=== PATIENT | female | born 1935 | race Asian ===

== ENCOUNTER 2020-01-31 04:06 | Inpatient (IN) | payer MEDICARE ==
[~2020-01-31] VITALS: Ht 149.9 cm; Wt 56.9 kg
[2020-01-31] MEDS ORDERED: ONDANSETRON HCL 4 MG/2 ML VIAL IV ONE (04:15)
[2020-01-31] MEDS ORDERED: SODIUM CHLORIDE 0.9% 500 ML IV ONE (04:15)
[2020-01-31] MEDS ORDERED: MET50T GT (04:40)
[2020-01-31] MEDS ORDERED: DULO20CA PO (04:40)
[2020-01-31] MEDS ORDERED: PANT1INJ3 IV (04:41)
[2020-01-31] MEDS ORDERED: ATOR20TA50 PO (04:44)
[2020-01-31] MEDS ORDERED: ATOR40TA52 PO (04:45)
[2020-01-31] MEDS ORDERED: ASPI-378 PO (04:46)
[2020-01-31 05:45] LABS: Basophils # (auto) 0 10 ^3/uL (0-0.2); Basophils % (auto) 0.5 % (0.0-2.0); Eosinophils # (auto) 0 10 ^3/uL (0-0.8); Eosinophils % (auto) 0.4 % (0.0-7.0); Hematocrit 37.4 % (36.0-46.0); Hemoglobin 12.5 g/dL (12.2-16.2); Lymphocytes # (auto) 0.9 10 ^3/uL (0.4-5.4); Lymphocytes % (auto) 15.5 % (10.0-50.0); Mean Corpuscular Hemoglobin 31.4 pg (28.0-32.0); Mean Corpuscular Hgb Conc. 33.5 g/dL (32.0-36.0); Mean Corpuscular Volume 93.7 fL (80.0-100.0); Monocytes # (auto) 0.6 10 ^3/uL (0-1.3); Monocytes % (auto) 10.1 % (0.0-12.0); Neutrophils # (auto) 4.2 10 ^3/uL (1.6-8.6); Neutrophils % (auto) 73.5 % (37.0-80.0); Nucleated Red Blood Cells % 0.1 %; Platelet Count (auto) 280 10^3/uL (140-450); Red Blood Cells 3.99 10^6/uL (4.0-5.20); Red Cell Distribution Width 14.1 % (11.8-14.3); White Blood Cell 5.7 10^3/uL (4.4-10.8)
[2020-01-31 05:57] LABS: Partial Thromboplastin Time 24.3 sec (23.0-31.2)
[2020-01-31 06:03] LABS: Albumin 2.8 g/dL (3.4-5.0); Calcium 8.9 mg/dL (8.5-10.1); Chloride 98 mmol/L (98-107); Potassium 3.7 mmol/L (3.5-5.1); Sodium 131 mmol/L (136-145)
[2020-01-31 06:08] LABS: Amylase 101 U/L (25-115); Lipase 142 U/L (73-393)
[2020-01-31 06:14] LABS: Alanine Aminotransferase 33 U/L (13-56); Alkaline Phosphatase 82 U/L (45-117); Anion Gap 8 (5-15); Aspartate Aminotransferase 29 U/L (15-37); BUN/Creatinine Ratio 16.4; Bilirubin, Total 0.8 mg/dL (0.2-1.0); Blood Urea Nitrogen 11 mg/dL (7-18); Carbon Dioxide 25 mmol/L (21-32); GFR African American 108 mL/min; GFR Non-African American 90 mL/min; Glucose 142 mg/dL (74-106); Magnesium 2.4 mg/dL (1.6-2.6)
[2020-01-31] MEDS ORDERED: DexAMETHasone SOD PHOS 10MG/1ML VIAL INJ IV ONE (06:15)
[2020-01-31] MEDS ORDERED: DOXYCYCLINE 100MG/250ML 250 ML IV ONE (06:15)
[2020-01-31] MEDS ORDERED: SODIUM CHLORIDE 0.9% 1,000 ML IV SCH (07:24)
[2020-01-31] MEDS ORDERED: ACETAMINOPHEN 325 MG TAB PO PRN (07:30)
[2020-01-31] MEDS ORDERED: ALUM & MAG HYDROX-SIMETH LIQ(MAALOX) 30 ML PO PRN (07:30)
[2020-01-31] MEDS ORDERED: DOCUSATE SOD 100 MG CAP PO PRN (07:30)
[2020-01-31] MEDS ORDERED: ACETAMINOPHEN 500 MG TAB PO PRN (07:30)
[2020-01-31 08:31] LABS: Urine Bacteria FEW /hpf (None Seen); Urine Blood Negative /uL (Negative); Urine Specific Gravity 1.008 (1.001-1.035); Urine WBC 20 /hpf (0 - 5)
[2020-01-31] MEDS ORDERED: ASCORBIC ACID 1,000 MG TAB PO SCH (10:00)
[2020-01-31] MEDS ORDERED: PANTOPRAZOLE 40 MG/10 ML VIAL INJ IV SCH (10:00)
[2020-01-31] MEDS ORDERED: DOXYCYCLINE 100 MG TAB/CAP PO SCH (10:00)
[2020-01-31] MEDS ORDERED: ZINC SULFATE 220mg CAP or TAB PO SCH (10:00)
[2020-01-31] MEDS: ASPirin-EC 81 mg tab PO SCH (10:04)
[2020-01-31] MEDS: METOPROLOL TARTRATE 50 MG TAB PO SCH ×2 (10:04→22:15)
[2020-01-31] MEDS: ENOXAPARIN SOD 40 MG/0.4 ML SYRINGE SC SCH (10:04)
[2020-01-31] MEDS ORDERED: levoFLOXacin 500MG 100 ML IV ONE (10:45)
[2020-01-31] MEDS: HYDROcodone-ACET 5/325MG TAB PO PRN ×3 (11:49→22:15)
--- NOTE | 2020-01-31 12:37 | NUR ---
MS admit from [facility] admitted to tele/MS after SBAR received. Patient oriented to NIKHIL LERNER, RN primary RN, TELE unit, room 216, bed B, and unit policies regarding patient care and visiting hours. Patient weighed by bedscale and encouraged to call if they need something. All questions and concerns addressed, patient verbalized understanding.
[2020-01-31 13:00] VITALS: BP 133/60
[2020-01-31] MEDS ORDERED: ALBUTEROL SULF HFA 90MCG INH 200DOSE IN SCH (14:00)
[2020-01-31 14:01] VITALS: BP 133/60
[2020-01-31] MEDS ORDERED: DULoxetine HCL 30 MG CAP PO ONE (15:00)
[2020-01-31] MEDS: ONDANSETRON HCL 4 MG/2 ML VIAL IV PRN ×2 (16:01→22:16)
[2020-01-31 17:00] VITALS: BP 129/81
[2020-01-31] MEDS: SUCRALFATE 1 GM TAB PO SCH ×2 (17:51→22:15)
--- NOTE | 2020-01-31 18:02 | NUR ---
MD Fox ROOT ROUNDING.
--- NOTE | 2020-01-31 18:46 | NUR ---
CARE ENDORSED TO NOC RN.
[2020-01-31 22:00] VITALS: BP 125/71
[2020-01-31] MEDS: ATORVASTATIN 20 MG TAB PO SCH (22:15)
[2020-02-01 05:00] VITALS: BP 131/66
[2020-02-01] MEDS: SUCRALFATE 1 GM TAB PO SCH ×4 (06:25→21:48)
[2020-02-01] MEDS: ONDANSETRON HCL 4 MG/2 ML VIAL IV PRN (06:25)
[2020-02-01] MEDS: HYDROcodone-ACET 5/325MG TAB PO PRN ×2 (06:25→21:48)
[2020-02-01 07:39] LABS: Basophils # (auto) 0 10 ^3/uL (0-0.2); Basophils % (auto) 0.1 % (0.0-2.0); Eosinophils # (auto) 0 10 ^3/uL (0-0.8); Eosinophils % (auto) 0.1 % (0.0-7.0); Hematocrit 35.6 % (36.0-46.0); Hemoglobin 11.7 g/dL (12.2-16.2); Lymphocytes # (auto) 1.1 10 ^3/uL (0.4-5.4); Lymphocytes % (auto) 25.2 % (10.0-50.0); Mean Corpuscular Hemoglobin 31.2 pg (28.0-32.0); Mean Corpuscular Volume 94.7 fL (80.0-100.0); Monocytes # (auto) 0.5 10 ^3/uL (0-1.3); Neutrophils # (auto) 2.8 10 ^3/uL (1.6-8.6); Neutrophils % (auto) 63.6 % (37.0-80.0); Nucleated Red Blood Cells % 0.1 %; Platelet Count (auto) 262 10^3/uL (140-450); Red Blood Cells 3.76 10^6/uL (4.0-5.20); White Blood Cell 4.5 10^3/uL (4.4-10.8)
--- NOTE | 2020-02-01 07:48 | NUR ---
OPENING SHIFT NOTE: PATIENT ASLEEP IN BED, EASILY AWOKEN, A/OX4 RESPIRATIONS EVEN AND UNLABORED. PAIN CURRENTLY REPORTED PAIN AT A 4 OUT OF 10. PATIENT DENIES WANTING ANYTHING BY MOUTH OR "ANY MORE MEDICINE" POINTING AT STOMACH TO INDICATING SHE DOESN'T WANT TO UPSET IT. PATIENT UPDATED ON PLAN OF CARE. PATIENT VERBALIZED UNDERSTANDING, CALL LIGHT WITHIN REACH, FALL PRECAUTIONS IN PLACE. WILL CONTINUE TO MONITOR.
[2020-02-01 08:05] LABS: Albumin 2.5 g/dL (3.4-5.0); Calcium 8.2 mg/dL (8.5-10.1); Potassium 3.8 mmol/L (3.5-5.1)
[2020-02-01 08:11] LABS: BUN/Creatinine Ratio 20.7; Bilirubin, Total 0.5 mg/dL (0.2-1.0); Total Protein 6.3 g/dL (6.4-8.2)
[2020-02-01 09:00] VITALS: BP 116/64
[2020-02-01] MEDS ORDERED: levoFLOXacin 500MG 100 ML IV SCH (10:00)
[2020-02-01] MEDS: PANTOPRAZOLE 40 MG TAB PO SCH (10:00)
[2020-02-01] MEDS: ENOXAPARIN SOD 40 MG/0.4 ML SYRINGE SC SCH (10:00)
[2020-02-01] MEDS: DULoxetine HCL 30 MG CAP PO SCH (10:00)
[2020-02-01] MEDS: METOPROLOL TARTRATE 50 MG TAB PO SCH ×2 (10:00→21:48)
[2020-02-01] MEDS ORDERED: levoFLOXacin 750MG 150 ML IV SCH (10:00)
[2020-02-01] MEDS: ASPirin-EC 81 mg tab PO SCH (10:00)
--- NOTE | 2020-02-01 10:09 | NUR ---
REFUSED 1000 MEDS: PATIENT AFRAID THAT TAKING PO MEDS ARE GOING TO MAKE HER THROW UP. PATIENT REFUSED PO MEDS AT THIS TIME. EDUCATION GIVEN REGARDING MEDS AND PURPOSE, TIMING, AND SIDE EFFECTS. MEDS RETURNED TO [facility].
[2020-02-01 13:00] VITALS: BP 129/81
--- NOTE | 2020-02-01 13:18 | NUR ---
DENTURES, HEARING AID (1), AND UNDERGARMENTS REMOVED FOR PROCEDURE PREP. PLACED AT BEDSIDE.
[2020-02-01] MEDS ORDERED: SODIUM CHLORIDE LOCK 10 ML ONE (13:43)
[2020-02-01] MEDS ORDERED: LIDOCAINE VISCOUS 2% 15ML UD ONE (13:43)
[2020-02-01] MEDS ORDERED: diphenhdrAMINE HCL 50 MG/1 ML VL ONE (13:44)
[2020-02-01] MEDS ORDERED: MIDAZOLAM HCL 5 MG/ML-1ML VIAL ONE (13:44)
[2020-02-01] MEDS ORDERED: fentaNYL CITRATE 100 MCG/2 ML VL ONE (13:44)
[2020-02-01] MEDS ORDERED: FLUMAZENIL 0.1 MG/ML INJ 10ML MDV IV ONE (13:46)
[2020-02-01] MEDS ORDERED: NALOXONE HCL 0.4 MG/ML VIAL ONE (13:46)
--- NOTE | 2020-02-01 13:54 | NUR ---
PATIENT TAKEN DOWN TO GI LAB.
--- NOTE | 2020-02-01 14:55 | NUR ---
PATIENT BACK IN ROOM FROM EGD WITH BIOPSY. VS STABLE. BED ALARM ON, AND PATIENT RESTING COMFORTABLY.
[2020-02-01 17:00] VITALS: BP 109/65
--- NOTE | 2020-02-01 18:51 | NUR ---
CARE ENDORSED TO NOC RN.
--- NOTE | 2020-02-01 19:30 | NUR ---
Opening Shift Note Assumed care of patient, awake and alert. No S/S of distress/SOB or pain. Instructed on POC and to call for assist PRN, will continue to monitor for changes Q1hr and PRN.
[2020-02-01] MEDS: ATORVASTATIN 20 MG TAB PO SCH (21:49)
[2020-02-01 22:00] VITALS: BP 110/70
[2020-02-02] MEDS: ONDANSETRON HCL 4 MG/2 ML VIAL IV PRN (02:27)
[2020-02-02 05:00] VITALS: BP 123/75
[2020-02-02] MEDS: SUCRALFATE 1 GM TAB PO SCH ×2 (06:11→11:30)
[2020-02-02 08:59] VITALS: BP 127/71
--- NOTE | 2020-02-02 09:31 | NUR ---
FAMILY CONTACTS: WOULD LIKE PRIMARY MD TO CONTACT HIM NUMBER [phone]. IF NO ANSWER DAUGHTER LINWOOD TO BE CONTACTED [phone].
[2020-02-02] MEDS: METOPROLOL TARTRATE 50 MG TAB PO SCH (10:27)
[2020-02-02] MEDS: ENOXAPARIN SOD 40 MG/0.4 ML SYRINGE SC SCH ×2 (10:27→14:57)
[2020-02-02] MEDS: PANTOPRAZOLE 40 MG TAB PO SCH (10:27)
[2020-02-02] MEDS: DULoxetine HCL 30 MG CAP PO SCH (10:39)
[2020-02-02] MEDS: ASPirin-EC 81 mg tab PO SCH (10:39)
--- NOTE | 2020-02-02 10:41 | NUR ---
PHYSICAL THERAPIST CHRIS RECOMMENDING HOME HEALTH ON DC.
[2020-02-02 12:00] VITALS: BP 125/70
--- NOTE | 2020-02-02 12:00 | NUR ---
PATIENT REFUSED CARAFATE TAB: MD HOUSE MADE AWARE. ORDER CHANGED TO SUSPENSION FOR PATIENT PREFERENCE.
[2020-02-02] MEDS ORDERED: PANT40TA2 PO (14:41)
[2020-02-02] MEDS ORDERED: SUCR1SUS5 PO (14:43)
[2020-02-02] MEDS ORDERED: LEVO750T8 PO (14:44)
[2020-02-02] MEDS ORDERED: METF-370 PO (14:47)
[2020-02-02] MEDS: HYDROcodone-ACET 5/325MG TAB PO PRN (14:57)
[2020-02-02 15:28] VITALS: BP 124/77
--- NOTE | 2020-02-02 15:33 | NUR ---
PATIENT RIDE HOME: LINWOOD CONTACTED FOR RIDE HOME, TO [facility] AT 17:30, HE IS CURRENTLY AT HIS OWN EYE APPOINTMENT.
[2020-02-02] MEDS ORDERED: SUCRALFATE 1 GM/10 ML ORAL SUSP PO SCH (17:00)
--- NOTE | 2020-02-02 17:34 | NUR ---
DISCHARGE: PATIENT GIVEN ALL EDUCATION MATERIALS. VERBALIZED UNDERSTANDING. PATIENT TELE REMOVED. IV REMOVED MANUAL PRESSURE APPLIED. PATIENT LEFT WITH ALL BELONGINGS. EDUCATION GIVEN TO DOWN IN MAIN LOBBY WELL. THIS RN ASSISTED PATIENT TO PRIVATE AUTO VIA WHEELCHAIR.
== END 2020-02-02 17:31 | disposition home or self-care (01) | DRG 391 ==
LOC: EDBD 04:06 → ER 04:06 → TELE 04:07 → TELE-CENTR 12:54
PROVIDERS: ADMIT Hospitalist; ATTEND Internal Medicine Nephrology
PROC: 0DB88ZX Excision of Small Intestine, Via Natural or Artificial Opening Endoscopic, Diagnostic (ICD-10-PCS; 2020-02-01)
PROC: 0DB68ZX Excision of Stomach, Via Natural or Artificial Opening Endoscopic, Diagnostic (ICD-10-PCS; principal; 2020-02-01 14:05)
DX: K29.70 Gastritis, unspecified, without bleeding (principal); J15.6 Pneumonia due to other Gram-negative bacteria; N39.0 Urinary tract infection, site not specified; E78.5 Hyperlipidemia, unspecified; I10 Essential (primary) hypertension; K57.90 Diverticulosis of intestine, part unspecified, without perforation or abscess without bleeding; E11.65 Type 2 diabetes mellitus with hyperglycemia; K31.9 Disease of stomach and duodenum, unspecified; K20.9 Esophagitis, unspecified; K44.9 Diaphragmatic hernia without obstruction or gangrene; I25.2 Old myocardial infarction; Z87.19 Personal history of other diseases of the digestive system; Z88.0 Allergy status to penicillin; Z20.828 Contact with and (suspected) exposure to other viral communicable diseases
CPT/HCPCS: 36415; 43239; 71045; 74176; 80053; 81001; 82150; 83036; 83605; 83690; 83735; 83880; 84443; 84484; 85025; 85379; 85610; 85730; 86850; 86900; 86901; 87040; 87086; 93005; 97163; C9113; G0378; J1100; J1956; J2250; J2405; J3490

== ENCOUNTER → 2020-02-23 | Outpatient (CLI) | payer MEDICARE ==
[~2020-02-23] MED LIST: ATOR40TA52 PO; DULO20CA PO; LEVO750T8 PO; MET50T GT; METF-370 PO; PANT40TA2 PO; SUCR1SUS5 PO
[2020-02-23 14:15] LABS: Basophils # (auto) 0 10 ^3/uL (0-0.2); Basophils % (auto) 0.7 % (0.0-2.0); Eosinophils # (auto) 0.1 10 ^3/uL (0-0.8); Eosinophils % (auto) 1.4 % (0.0-7.0); Hematocrit 38.4 % (36.0-46.0); Hemoglobin 12.8 g/dL (12.2-16.2); Lymphocytes # (auto) 1.3 10 ^3/uL (0.4-5.4); Lymphocytes % (auto) 28.9 % (10.0-50.0); Mean Corpuscular Hemoglobin 31.7 pg (28.0-32.0); Mean Corpuscular Hgb Conc. 33.3 g/dL (32.0-36.0); Mean Corpuscular Volume 95.2 fL (80.0-100.0); Monocytes # (auto) 0.5 10 ^3/uL (0-1.3); Monocytes % (auto) 11.6 % (0.0-12.0); Neutrophils # (auto) 2.6 10 ^3/uL (1.6-8.6); Neutrophils % (auto) 57.4 % (37.0-80.0); Nucleated Red Blood Cells % 0.1 %; Platelet Count (auto) 188 10^3/uL (140-450); Red Blood Cells 4.03 10^6/uL (4.0-5.20); Red Cell Distribution Width 16.1 % (11.8-14.3); White Blood Cell 4.5 10^3/uL (4.4-10.8)
== END | disposition home or self-care (01) ==
LOC: LAB 14:01
PROVIDERS: ATTEND Internal Medicine
DX: E11.9 Type 2 diabetes mellitus without complications (principal); E78.5 Hyperlipidemia, unspecified; J18.9 Pneumonia, unspecified organism; I50.9 Heart failure, unspecified
CPT/HCPCS: 36415; 83880; 85025

== ENCOUNTER → 2020-03-09 | Outpatient (CLI) | payer MEDICARE ==
[~2020-03-09] MED LIST changes: -METF-370 PO
== END | disposition home or self-care (01) ==
LOC: LAB 08:43
PROVIDERS: ATTEND Internal Medicine
DX: E11.9 Type 2 diabetes mellitus without complications (principal); E78.5 Hyperlipidemia, unspecified; J18.9 Pneumonia, unspecified organism
CPT/HCPCS: 82607

== ENCOUNTER → 2020-04-20 | Outpatient (CLI) | payer MEDICARE | END | disposition home or self-care (01) | LOC: LAB 10:11 | PROVIDERS: ATTEND Internal Medicine Pulmonary Disease | DX: J47.9 Bronchiectasis, uncomplicated (principal) | CPT/HCPCS: 82784; 86431; 87070; 87077; 87186; 87205 ==

== ENCOUNTER → 2020-05-07 | Outpatient (CLI) | payer MEDICARE ==
[~2020-05-07] MED LIST changes: +ALBUTEROL SULF 2.5 MG/0.5ML(0.5%) NEB SOLN ONE
== END | disposition home or self-care (01) ==
LOC: RT 08:49
PROVIDERS: ATTEND Internal Medicine Pulmonary Disease
DX: R06.00 Dyspnea, unspecified (principal); I10 Essential (primary) hypertension; Z79.899 Other long term (current) drug therapy
CPT/HCPCS: 94060

== ENCOUNTER → 2020-07-05 | Outpatient (CLI) | payer MEDICARE ==
[~2020-07-05] MED LIST changes: -ALBUTEROL SULF 2.5 MG/0.5ML(0.5%) NEB SOLN ONE
[2020-07-05 11:52] LABS: Cholesterol 167 mg/dL (< 200); HDL Cholesterol 81 mg/dL (40-59); LDL Cholesterol 81 mg/dL (< 100); Triglycerides 82 mg/dL (< 150)
== END | disposition home or self-care (01) ==
LOC: LAB 09:33
PROVIDERS: ATTEND Internal Medicine
DX: E11.9 Type 2 diabetes mellitus without complications (principal)
CPT/HCPCS: 36415; 80061; 82043; 83036

== ENCOUNTER 2020-07-31 18:35 | Inpatient (IN) | payer MEDICARE ==
[~2020-07-31] VITALS: Ht 144.8 cm; Wt 52.9 kg
[2020-07-31 19:55] LABS: Basophils # (auto) 0.1 10 ^3/uL (0-0.2); Basophils % (auto) 2.2 % (0.0-2.0); Eosinophils # (auto) 0.2 10 ^3/uL (0-0.8); Eosinophils % (auto) 3.8 % (0.0-7.0); Hematocrit 39.4 % (36.0-46.0); Hemoglobin 13.2 g/dL (12.2-16.2); Lymphocytes # (auto) 0.6 10 ^3/uL (0.4-5.4); Lymphocytes % (auto) 9.6 % (10.0-50.0); Mean Corpuscular Hemoglobin 31.6 pg (28.0-32.0); Mean Corpuscular Hgb Conc. 33.5 g/dL (32.0-36.0); Mean Corpuscular Volume 94.2 fL (80.0-100.0); Monocytes # (auto) 0.1 10 ^3/uL (0-1.3); Monocytes % (auto) 1.8 % (0.0-12.0); Neutrophils % (auto) 82.6 % (37.0-80.0); Nucleated Red Blood Cells % 0.1 %; Platelet Count (auto) 183 10^3/uL (140-450); Red Blood Cells 4.18 10^6/uL (4.0-5.20); Red Cell Distribution Width 14.7 % (11.8-14.3); White Blood Cell 6.1 10^3/uL (4.4-10.8)
[2020-07-31 20:10] LABS: INR 0.97 (0.9-1.15); Partial Thromboplastin Time 24.8 sec (23.0-31.2)
[2020-07-31 20:16] LABS: Albumin 3.2 g/dL (3.4-5.0); Calcium 8.5 mg/dL (8.5-10.1); Potassium 3.6 mmol/L (3.5-5.1)
[2020-07-31 20:18] LABS: BUN/Creatinine Ratio 19.7; Bilirubin, Total 0.6 mg/dL (0.2-1.0); Total Protein 7.6 g/dL (6.4-8.2)
[2020-07-31] MEDS ORDERED: AZITHROMYCIN 500MG/ 250ML 250 ML IV ONE (22:00)
[2020-07-31] MEDS ORDERED: cefTRIAXone 1GM/50ML D5W 50 ML IV ONE (22:00)
[2020-07-31 22:22] LABS: Urine Bacteria FEW /hpf (None Seen); Urine Blood Negative /uL (Negative); Urine Specific Gravity 1.008 (1.001-1.035); Urine WBC 27 /hpf (0 - 5)
[2020-08-01] MEDS ORDERED: ONDANSETRON HCL 4 MG/2 ML VIAL IV PRN (01:15)
[2020-08-01] MEDS ORDERED: HYDROcodone-ACET 5/325MG TAB PO PRN (01:15)
[2020-08-01] MEDS ORDERED: MORPHINE SULF INJ 2 MG/ML SYRINGE 1ML IV PRN (01:15)
[2020-08-01] MEDS ORDERED: ACETAMINOPHEN 325 MG TAB PO PRN (01:15)
[2020-08-01] MEDS ORDERED: D5W/SOD CHLO 0.9% 1,000 ML IV ONE (01:15)
[2020-08-01] MEDS ORDERED: MORPHINE SULFATE 4 MG/ML SYR/VIAL IV PRN (01:15)
[2020-08-01] MEDS ORDERED: DEXTROSE (50%) 50ML SYRG IV PRN ×2 (01:15→04:15)
[2020-08-01] MEDS ORDERED: NITROGLYCERIN 0.4 MG SL TAB SL PRN (01:15)
[2020-08-01] MEDS ORDERED: DOCUSATE SOD 100 MG CAP PO PRN (01:15)
[2020-08-01 03:05] LABS: Basophils # (auto) 0 10 ^3/uL (0-0.2); Basophils % (auto) 0.4 % (0.0-2.0); Eosinophils # (auto) 0.1 10 ^3/uL (0-0.8); Eosinophils % (auto) 1.6 % (0.0-7.0); Hematocrit 35.2 % (36.0-46.0); Hemoglobin 12.1 g/dL (12.2-16.2); Lymphocytes # (auto) 1.1 10 ^3/uL (0.4-5.4); Lymphocytes % (auto) 15.8 % (10.0-50.0); Mean Corpuscular Hgb Conc. 34.3 g/dL (32.0-36.0); Mean Corpuscular Volume 93.3 fL (80.0-100.0); Monocytes # (auto) 0.7 10 ^3/uL (0-1.3); Monocytes % (auto) 10.2 % (0.0-12.0); Nucleated Red Blood Cells % 0.2 %; Platelet Count (auto) 158 10^3/uL (140-450); Red Blood Cells 3.77 10^6/uL (4.0-5.20); Red Cell Distribution Width 14.3 % (11.8-14.3); White Blood Cell 6.9 10^3/uL (4.4-10.8)
[2020-08-01] MEDS: DOXYCYCLINE 100MG/250ML 250 ML IV SCH ×2 (03:05→13:23)
[2020-08-01 03:26] LABS: Calcium 8.6 mg/dL (8.5-10.1); Potassium 3.5 mmol/L (3.5-5.1)
[2020-08-01 03:28] LABS: Bilirubin, Total 0.6 mg/dL (0.2-1.0); Total Protein 6.7 g/dL (6.4-8.2)
[2020-08-01 03:42] LABS: INR 1.01 (0.9-1.15); Partial Thromboplastin Time 27.7 sec (23.0-31.2)
[2020-08-01] MEDS ORDERED: SODIUM CHLORIDE 0.9% 1,000 ML IV SCH (04:15)
[2020-08-01] MEDS: SODIUM CHLORIDE 0.9% 1,000 ML IV SCH ×2 (04:29→21:40)
[2020-08-01] MEDS: ACCU-CHEK COMFORT CURVE STRIP VI SCH ×4 (06:54→22:00)
[2020-08-01] MEDS: InsuLIN REG 1unit/0.01ml Soln (100units/ml) SC SCH ×8 (06:54→22:00)
[2020-08-01] MEDS ORDERED: ACCU-CHEK COMFORT CURVE STRIP VI SCH (07:00)
[2020-08-01] MEDS: MULTIPLE VITAMIN TAB PO SCH (09:47)
[2020-08-01] MEDS: ENOXAPARIN SOD 30 MG/0.3 ML SYRINGE SC SCH (09:47)
[2020-08-01] MEDS: ZINC SULFATE 220mg CAP or TAB PO SCH (09:47)
[2020-08-01] MEDS: METOPROLOL TARTRATE 25 MG TAB PO SCH ×2 (09:47→21:42)
[2020-08-01] MEDS: ASCORBIC ACID 500 MG TAB PO SCH ×2 (09:47→22:00)
[2020-08-01] MEDS: FAMOTIDINE (10MG/ML) 2ML VL IV SCH (10:00)
[2020-08-01] MEDS ORDERED: levoFLOXacin 500MG 100 ML IV ONE (12:15)
[2020-08-02] MEDS: DOXYCYCLINE 100MG/250ML 250 ML IV SCH ×2 (01:15→14:20)
[2020-08-02] MEDS: ACCU-CHEK COMFORT CURVE STRIP VI SCH ×4 (07:00→23:41)
[2020-08-02] MEDS: InsuLIN REG 1unit/0.01ml Soln (100units/ml) SC SCH ×8 (07:00→23:41)
[2020-08-02 07:43] LABS: Basophils # (auto) 0 10 ^3/uL (0-0.2); Basophils % (auto) 0.5 % (0.0-2.0); Eosinophils # (auto) 0.1 10 ^3/uL (0-0.8); Eosinophils % (auto) 1.2 % (0.0-7.0); Hemoglobin 12.5 g/dL (12.2-16.2); Lymphocytes # (auto) 0.9 10 ^3/uL (0.4-5.4); Mean Corpuscular Hemoglobin 32.3 pg (28.0-32.0); Mean Corpuscular Hgb Conc. 34.6 g/dL (32.0-36.0); Mean Corpuscular Volume 93.3 fL (80.0-100.0); Monocytes # (auto) 0.7 10 ^3/uL (0-1.3); Monocytes % (auto) 12.3 % (0.0-12.0); Neutrophils # (auto) 3.6 10 ^3/uL (1.6-8.6); Nucleated Red Blood Cells % 0.1 %; Platelet Count (auto) 158 10^3/uL (140-450); Red Blood Cells 3.86 10^6/uL (4.0-5.20); Red Cell Distribution Width 14.5 % (11.8-14.3); White Blood Cell 5.3 10^3/uL (4.4-10.8)
[2020-08-02 08:02] LABS: Albumin 2.9 g/dL (3.4-5.0); Calcium 8.6 mg/dL (8.5-10.1); Potassium 3.5 mmol/L (3.5-5.1)
[2020-08-02 08:05] LABS: BUN/Creatinine Ratio 12.9; Bilirubin, Total 0.8 mg/dL (0.2-1.0)
[2020-08-02] MEDS ORDERED: IOHEXOL 350 MG/ML 100ML IJ ONE (09:53)
[2020-08-02] MEDS: levoFLOXacin 250MG 50 ML IV SCH (10:00)
[2020-08-02] MEDS: METOPROLOL TARTRATE 25 MG TAB PO SCH ×2 (10:00→23:40)
[2020-08-02] MEDS: ASCORBIC ACID 500 MG TAB PO SCH ×2 (10:00→23:39)
[2020-08-02] MEDS: ZINC SULFATE 220mg CAP or TAB PO SCH (10:00)
[2020-08-02] MEDS: FAMOTIDINE (10MG/ML) 2ML VL IV SCH (10:00)
[2020-08-02] MEDS: ENOXAPARIN SOD 30 MG/0.3 ML SYRINGE SC SCH (10:00)
[2020-08-02] MEDS ORDERED: levoFLOXacin 500MG 100 ML IV SCH (10:00)
[2020-08-02] MEDS: MULTIPLE VITAMIN TAB PO SCH (10:00)
[2020-08-02] MEDS: SODIUM CHLORIDE 0.9% 1,000 ML IV SCH (14:59)
[2020-08-03] MEDS: SODIUM CHLORIDE 0.9% 1,000 ML IV SCH (06:36)
[2020-08-03] MEDS: InsuLIN REG 1unit/0.01ml Soln (100units/ml) SC SCH ×4 (06:37→11:30)
[2020-08-03] MEDS: ACCU-CHEK COMFORT CURVE STRIP VI SCH ×2 (06:37→11:43)
[2020-08-03 07:42] VITALS: BP 139/69
[2020-08-03] MEDS: ZINC SULFATE 220mg CAP or TAB PO SCH (10:00)
[2020-08-03] MEDS: ENOXAPARIN SOD 30 MG/0.3 ML SYRINGE SC SCH (10:00)
[2020-08-03] MEDS: levoFLOXacin 250MG 50 ML IV SCH (10:00)
[2020-08-03] MEDS: ASCORBIC ACID 500 MG TAB PO SCH (10:00)
[2020-08-03] MEDS: MULTIPLE VITAMIN TAB PO SCH (10:00)
[2020-08-03] MEDS: FAMOTIDINE (10MG/ML) 2ML VL IV SCH (11:42)
[2020-08-03] MEDS: METOPROLOL TARTRATE 25 MG TAB PO SCH (11:42)
[2020-08-03 13:03] VITALS: BP 139/69
== END 2020-08-03 15:10 | disposition home or self-care (01) | DRG 191 ==
LOC: ER 18:35 → TELE 08-01 01:30 → TELE-CENTR 08-02 20:57
PROVIDERS: ADMIT Nurse Practitioner Family; ATTEND Family Medicine
DX: J47.1 Bronchiectasis with (acute) exacerbation (principal); R04.2 Hemoptysis; E87.1 Hypo-osmolality and hyponatremia; J47.0 Bronchiectasis with acute lower respiratory infection; J18.0 Bronchopneumonia, unspecified organism; E78.5 Hyperlipidemia, unspecified; I10 Essential (primary) hypertension; Z20.822 Contact with and (suspected) exposure to COVID-19; I25.10 Atherosclerotic heart disease of native coronary artery without angina pectoris; I25.2 Old myocardial infarction; Z79.01 Long term (current) use of anticoagulants; Z86.11 Personal history of tuberculosis; Z87.891 Personal history of nicotine dependence; Z95.1 Presence of aortocoronary bypass graft; Z95.5 Presence of coronary angioplasty implant and graft; Z88.0 Allergy status to penicillin
CPT/HCPCS: 36415; 71045; 71275; 80053; 81001; 82962; 85025; 85610; 85730; 87040; 87070; 87205; 87426; 93005; 96365; 96368; G0378; J0696; J1815; J1956; J2405; J3490

== ENCOUNTER → 2020-10-15 | Outpatient (CLI) | payer MEDICARE ==
[2020-10-15 10:29] LABS: Potassium 3.8 mmol/L (3.5-5.1)
[2020-10-15 10:33] LABS: Total Protein 7.4 g/dL (6.4-8.2)
[2020-10-15 10:51] LABS: BUN/Creatinine Ratio 14.3; Bilirubin, Total 0.8 mg/dL (0.2-1.0); Calcium 9.3 mg/dL (8.5-10.1)
== END | disposition home or self-care (01) ==
LOC: LAB 08:48
PROVIDERS: ATTEND Physician Assistant
DX: I47.9 Paroxysmal tachycardia, unspecified (principal); E78.5 Hyperlipidemia, unspecified
CPT/HCPCS: 36415; 80053; 80061

== ENCOUNTER 2021-07-21 19:02 | Emergency (ER) | payer MEDICARE ==
[~2021-07-21] VITALS: Ht 149.9 cm; Wt 49.9 kg
[2021-07-21 19:34] VITALS: BP 146/80
[2021-07-21] MEDS ORDERED: ONDANSETRON HCL 4 MG/2 ML VIAL IV ONE (20:15)
[2021-07-21] MEDS ORDERED: PANTOPRAZOLE 40 MG/10 ML VIAL INJ IV ONE (20:15)
[2021-07-21] MEDS ORDERED: SODIUM CHLORIDE 0.9% 500 ML IV ONE (20:15)
[2021-07-21] MEDS ORDERED: MORPHINE SULFATE INJECTION 2 MG/ML SYRG IV ONE (20:15)
[2021-07-21 21:26] LABS: Basophils # (auto) 0 10 ^3/uL (0-0.2); Basophils % (auto) 0.3 % (0.0-2.0); Eosinophils # (auto) 0 10 ^3/uL (0-0.8); Eosinophils % (auto) 0.1 % (0.0-7.0); Hematocrit 38.2 % (36.0-46.0); Hemoglobin 13.3 g/dL (12.2-16.2); Lymphocytes # (auto) 0.4 10 ^3/uL (0.4-5.4); Lymphocytes % (auto) 10.5 % (10.0-50.0); Mean Corpuscular Hemoglobin 32.5 pg (28.0-32.0); Mean Corpuscular Hgb Conc. 34.9 g/dL (32.0-36.0); Monocytes # (auto) 0.5 10 ^3/uL (0-1.3); Monocytes % (auto) 14.4 % (0.0-12.0); Neutrophils # (auto) 2.8 10 ^3/uL (1.6-8.6); Neutrophils % (auto) 74.7 % (37.0-80.0); Nucleated Red Blood Cells % 0.2 %; Red Blood Cells 4.11 10^6/uL (4.0-5.20); Red Cell Distribution Width 14.7 % (11.8-14.3); White Blood Cell 3.8 10^3/uL (4.4-10.8)
[2021-07-21 21:33] LABS: Albumin 3.1 g/dL (3.4-5.0); Calcium 9.2 mg/dL (8.5-10.1); Potassium 4.2 mmol/L (3.5-5.1)
[2021-07-21 21:35] LABS: Bilirubin, Total 0.8 mg/dL (0.2-1.0); Total Protein 7.9 g/dL (6.4-8.2)
== END 2021-07-21 23:10 | disposition home or self-care (01) ==
LOC: ER 19:04
DX: K29.70 Gastritis, unspecified, without bleeding (principal); K20.90 Esophagitis, unspecified without bleeding; E87.1 Hypo-osmolality and hyponatremia; E78.5 Hyperlipidemia, unspecified; I10 Essential (primary) hypertension
CPT/HCPCS: 36415; 74176; 80053; 83690; 85025; 96361; 96374; 96375; 99284; C9113; J2405; J7040

== ENCOUNTER 2021-10-05 21:19 | Emergency (ER) | payer MEDICARE ==
[~2021-10-05] VITALS: Ht 142.2 cm; Wt 40.8 kg
[2021-10-05 22:55] LABS: Basophils # (auto) 0.2 10 ^3/uL (0-0.2); Basophils % (auto) 1.7 % (0.0-2.0); Eosinophils # (auto) 0 10 ^3/uL (0-0.8); Eosinophils % (auto) 0.1 % (0.0-7.0); Hematocrit 30.9 % (36.0-46.0); Lymphocytes # (auto) 0.2 10 ^3/uL (0.4-5.4); Lymphocytes % (auto) 2.3 % (10.0-50.0); Mean Corpuscular Hemoglobin 32.2 pg (28.0-32.0); Mean Corpuscular Hgb Conc. 35.6 g/dL (32.0-36.0); Mean Corpuscular Volume 90.5 fL (80.0-100.0); Monocytes # (auto) 0.6 10 ^3/uL (0-1.3); Monocytes % (auto) 6.2 % (0.0-12.0); Neutrophils % (auto) 89.7 % (37.0-80.0); Red Blood Cells 3.41 10^6/uL (4.0-5.20); Red Cell Distribution Width 14.4 % (11.8-14.3)
[2021-10-05 23:13] LABS: Chloride 84 mmol/L (98-107); Sodium 120 mmol/L (136-145)
[2021-10-05 23:18] LABS: Alanine Aminotransferase 9 U/L (13-56); Albumin 2.4 g/dL (3.4-5.0); Anion Gap 10 (5-15); Aspartate Aminotransferase 10 U/L (15-37); BUN/Creatinine Ratio 10.9; Blood Alcohol < 3.0 mg/dL (0-5); Blood Urea Nitrogen 5 mg/dL (7-18); Calcium 8.3 mg/dL (8.5-10.1); Carbon Dioxide 26 mmol/L (21-32); GFR African American 166 mL/min; GFR Non-African American 138 mL/min; Glucose 166 mg/dL (74-106)
[2021-10-05 23:20] LABS: Alkaline Phosphatase 76 U/L (45-117); Bilirubin, Total 1.2 mg/dL (0.2-1.0); Total Protein 6.6 g/dL (6.4-8.2)
[2021-10-05 23:28] LABS: Potassium 2.6 mmol/L (3.5-5.1)
[2021-10-06] MEDS: POTASSIUM CHL 20MEQ/100ML 100 ML IV SCH ×2 (00:36→02:27)
[2021-10-06 02:08] LABS: Urine Bacteria FEW /hpf (None Seen); Urine Blood Negative /uL (Negative); Urine Mucus FEW (None Seen); Urine Specific Gravity 1.015 (1.001-1.035); Urine WBC 32 /hpf (0 - 5)
[2021-10-06] MEDS ORDERED: CEFTRIAXONE SODIUM 2 GM in D5W 5% 50 ML IV ONE (06:45)
[2021-10-06] MEDS ORDERED: VANCOMYCIN 1GM/250ML 250 ML IV ONE (06:45)
[2021-10-06 09:09] VITALS: BP 105/63
== END 2021-10-06 09:21 | disposition short-term general hospital (02) ==
LOC: ER 21:19
DX: S06.5X0A Traumatic subdural hemorrhage without loss of consciousness, initial encounter (principal); H70.91 Unspecified mastoiditis, right ear; E78.5 Hyperlipidemia, unspecified; R26.0 Ataxic gait; G96.08 Other cranial cerebrospinal fluid leak; R41.82 Altered mental status, unspecified; I10 Essential (primary) hypertension; X58.XXXA Exposure to other specified factors, initial encounter; Y93.89 Activity, other specified; Y92.89 Other specified places as the place of occurrence of the external cause; Y99.8 Other external cause status
CPT/HCPCS: 36415; 70450; 70480; 71045; 80053; 80320; 81001; 84484; 85025; 93005; 96361; 96365; 96368; 99291; J0696; J3370; J3480; J7060

== ENCOUNTER → 2022-02-22 | Outpatient (CLI) | payer MEDICARE | END | disposition home or self-care (01) | LOC: XYW 09:53 | PROVIDERS: ATTEND Podiatrist | DX: I77.9 Disorder of arteries and arterioles, unspecified (principal) | CPT/HCPCS: 93925 ==

== ENCOUNTER 2022-04-30 06:22 | Inpatient (IN) | payer MEDICARE ==
[~2022-04-30] VITALS: Ht 142.2 cm; Wt 39.4 kg
[2022-04-30] MEDS ORDERED: LACTATED RINGER'S 1,000 ML IV ONE (07:30)
[2022-04-30 07:45] LABS: Basophils # (auto) 0 10 ^3/uL (0-0.2); Basophils % (auto) 0.5 % (0.0-2.0); Eosinophils # (auto) 0 10 ^3/uL (0-0.8); Hematocrit 38.6 % (36.0-46.0); Hemoglobin 13.4 g/dL (12.2-16.2); Lymphocytes # (auto) 0.6 10 ^3/uL (0.4-5.4); Mean Corpuscular Hemoglobin 32.6 pg (28.0-32.0); Mean Corpuscular Hgb Conc. 34.7 g/dL (32.0-36.0); Mean Corpuscular Volume 94.1 fL (80.0-100.0); Monocytes # (auto) 0.5 10 ^3/uL (0-1.3); Monocytes % (auto) 10.7 % (0.0-12.0); Neutrophils # (auto) 3.1 10 ^3/uL (1.6-8.6); Neutrophils % (auto) 72.8 % (37.0-80.0); Red Cell Distribution Width 15.1 % (11.8-14.3); White Blood Cell 4.3 10^3/uL (4.4-10.8)
[2022-04-30 08:06] LABS: BUN/Creatinine Ratio 26.2; Calcium 8.8 mg/dL (8.5-10.1); Magnesium 2.1 mg/dL (1.6-2.6); Potassium 3.4 mmol/L (3.5-5.1)
[2022-04-30 08:10] LABS: INR 1.05 (0.9-1.15)
[2022-04-30] MEDS ORDERED: IOHEXOL 300 MG/ML 100ML BOTTLE IJ ONE (08:51)
[2022-04-30] MEDS ORDERED: NITROGLYCERIN 0.4 MG SL TAB SL PRN (16:15)
[2022-04-30] MEDS ORDERED: cefTRIAXone 1GM/50ML D5W 50 ML IV ONE (16:15)
[2022-04-30] MEDS ORDERED: MORPHINE SULFATE INJ 2 MG/ml SYRG IV PRN (16:15)
[2022-04-30 16:39] LABS: Cholesterol 173 mg/dL (< 200)
[2022-04-30 16:41] LABS: HDL Cholesterol 66 mg/dL (40-59); LDL Cholesterol 103 mg/dL (< 100); Triglycerides 56 mg/dL (< 150)
[2022-04-30] MEDS: SODIUM CHLORIDE 0.9% 1,000 ML IV SCH (17:02)
[2022-04-30 19:18] VITALS: BP 139/79
[2022-04-30 19:23] VITALS: BP 139/79
[2022-04-30] MEDS ORDERED: SUCR1TAB PO (19:35)
[2022-04-30] MEDS ORDERED: PANT40T PO (19:35)
[2022-04-30] MEDS ORDERED: BENZ100C97 PO (19:35)
[2022-04-30] MEDS: ATORVASTATIN 20 MG TAB PO SCH (21:06)
[2022-04-30 22:00] VITALS: BP 126/78
[2022-04-30 22:12] LABS: Urine Bacteria NONE SEEN /hpf (None Seen); Urine Blood Negative /uL (Negative); Urine WBC 1 /hpf (0 - 5)
[2022-05-01 05:00] VITALS: BP 114/58
[2022-05-01] MEDS: SODIUM CHLORIDE 0.9% 1,000 ML IV SCH ×2 (05:20→18:37)
[2022-05-01 06:20] LABS: Basophils # (auto) 0 10 ^3/uL (0-0.2); Basophils % (auto) 0.5 % (0.0-2.0); Eosinophils # (auto) 0 10 ^3/uL (0-0.8); Eosinophils % (auto) 1.1 % (0.0-7.0); Hematocrit 33.6 % (36.0-46.0); Hemoglobin 11.7 g/dL (12.2-16.2); Lymphocytes # (auto) 0.6 10 ^3/uL (0.4-5.4); Lymphocytes % (auto) 18.9 % (10.0-50.0); Mean Corpuscular Hemoglobin 32.5 pg (28.0-32.0); Mean Corpuscular Hgb Conc. 34.8 g/dL (32.0-36.0); Mean Corpuscular Volume 93.3 fL (80.0-100.0); Monocytes # (auto) 0.4 10 ^3/uL (0-1.3); Monocytes % (auto) 12.5 % (0.0-12.0); Neutrophils # (auto) 2.3 10 ^3/uL (1.6-8.6); Nucleated Red Blood Cells % 0.3 %; Red Cell Distribution Width 14.4 % (11.8-14.3); White Blood Cell 3.4 10^3/uL (4.4-10.8)
[2022-05-01 06:23] LABS: Albumin 2.4 g/dL (3.4-5.0); Calcium 8.3 mg/dL (8.5-10.1)
[2022-05-01 06:26] LABS: BUN/Creatinine Ratio 20.6; Bilirubin, Total 0.6 mg/dL (0.2-1.0)
[2022-05-01] MEDS: cefTRIAXone 1GM/50ML D5W 50 ML IV SCH (08:44)
[2022-05-01 09:28] VITALS: BP 129/78
[2022-05-01] MEDS: METOPROLOL TARTRATE 50 MG TAB PO SCH (09:43)
[2022-05-01] MEDS ORDERED: metroNIDAZOLE 500MG/100ML 100 ML IV ONE (09:45)
[2022-05-01] MEDS ORDERED: ALBUTEROL SULF 2.5 MG/0.5ML(0.5%) NEB SOLN NEB PRN (12:30)
[2022-05-01] MEDS ORDERED: POTASSIUM CHL 20 Meq TABLET PO ONE (12:45)
[2022-05-01 13:00] VITALS: BP 120/62
[2022-05-01] MEDS: metroNIDAZOLE 500MG/100ML 100 ML IV SCH (18:00)
[2022-05-01] MEDS: ATORVASTATIN 20 MG TAB PO SCH (20:29)
[2022-05-02] MEDS: metroNIDAZOLE 500MG/100ML 100 ML IV SCH ×3 (02:04→18:28)
[2022-05-02] MEDS: SODIUM CHLORIDE 0.9% 1,000 ML IV SCH (08:26)
[2022-05-02] MEDS: cefTRIAXone 1GM/50ML D5W 50 ML IV SCH (08:27)
[2022-05-02] MEDS: METOPROLOL TARTRATE 50 MG TAB PO SCH (08:33)
[2022-05-02] MEDS ORDERED: AZITHROMYCIN 500MG/ 250ML 250 ML IV SCH (10:00)
[2022-05-02 18:36] VITALS: BP 117/50
[2022-05-02] MEDS: ATORVASTATIN 20 MG TAB PO SCH (21:34)
[2022-05-03] MEDS: metroNIDAZOLE 500MG/100ML 100 ML IV SCH ×2 (02:00→10:59)
[2022-05-03 04:56] VITALS: BP 111/64
[2022-05-03 09:00] VITALS: BP 139/76
[2022-05-03] MEDS: cefTRIAXone 1GM/50ML D5W 50 ML IV SCH (09:51)
[2022-05-03] MEDS ORDERED: AZITHROMYCIN 250 MG TAB PO SCH (10:00)
[2022-05-03] MEDS: METOPROLOL TARTRATE 50 MG TAB PO SCH (10:00)
[2022-05-03 14:31] VITALS: BP 101/64
== END 2022-05-03 15:25 | disposition home or self-care (01) | DRG 194 ==
LOC: EEVIPCON 06:26 → ER 06:26 → TELE 16:07 → TELE-WESTW 18:40 → WEST WING 05-01 20:37
PROVIDERS: ADMIT Registered Nurse; ATTEND Internal Medicine
DX: J18.9 Pneumonia, unspecified organism (principal); C78.00 Secondary malignant neoplasm of unspecified lung; E44.0 Moderate protein-calorie malnutrition; J47.0 Bronchiectasis with acute lower respiratory infection; J98.11 Atelectasis; R04.2 Hemoptysis; Z68.1 Body mass index [BMI] 19.9 or less, adult; E86.1 Hypovolemia; Z20.822 Contact with and (suspected) exposure to COVID-19; E86.0 Dehydration; R59.1 Generalized enlarged lymph nodes; R91.8 Other nonspecific abnormal finding of lung field; E78.5 Hyperlipidemia, unspecified; C80.1 Malignant (primary) neoplasm, unspecified; I25.10 Atherosclerotic heart disease of native coronary artery without angina pectoris; I10 Essential (primary) hypertension; Z95.1 Presence of aortocoronary bypass graft; Z80.0 Family history of malignant neoplasm of digestive organs; I25.2 Old myocardial infarction; Z88.0 Allergy status to penicillin
CPT/HCPCS: 36415; 71260; 74177; 80048; 80053; 80061; 81001; 83036; 83605; 83690; 83735; 84484; 85025; 85610; 85730; 87040; 87070; 87077; 87086; 87186; 87205; 87426; 93005; 96361; 96365; G0378; J0696; J3490